=== PATIENT | female | born 1980 | race Caucasian/White ===

== ENCOUNTER 2018-04-06 19:32 | Emergency (ER) | payer OTHER ==
[~2018-04-06] VITALS: Ht 154.9 cm; Wt 59.0 kg
[~2018-04-06 19:32] MED LIST: ABILIFY30 MG PO; AZITHROMYCIN 2250 MG PO; CHERATUSSIN DA480 ML PO; CITRATE OF MAG296 ML PO; DULCOLAX5 MG PO; EXCEDRIN CAPLE1 EACH PO; LITHIUM CARBON300 M3 PO; LOVAZA1000 MG PO; MUCOSA400 MG; NUVARING VAGIN1 EACH CERVICAL; POTASSIUM20 PO; PREDNISONE 10 M10 M1 PO; SEROQUEL 25 MG25 M1 PO; SYMBICORT160 MCG/4. INH; TRILEPTAL600 MG; TRILEPTAL600 MG PO; VALTREX 500 MG500 M1; VICODIN 5-5001 EACH PO; VITAMIN D1000 UNI1 PO; VYVANSE60 MG PO; ZOFRAN ODT4 MG PO; ZOFRAN4 MG PO; ZPAK PO
[2018-04-06] MEDS ORDERED: MUPIROCIN15 GM TOP (20:04)
== END 2018-04-06 21:51 | disposition home or self-care (01) ==
LOC: ER 19:32
DX: S40.812A Abrasion of left upper arm, initial encounter (principal); S40.811A Abrasion of right upper arm, initial encounter; M25.512 Pain in left shoulder; J45.909 Unspecified asthma, uncomplicated; E11.9 Type 2 diabetes mellitus without complications; G51.0 Bell's palsy; Z88.8 Allergy status to other drugs, medicaments and biological substances; W55.01XA Bitten by cat, initial encounter; Y93.89 Activity, other specified; Y92.89 Other specified places as the place of occurrence of the external cause; Y99.8 Other external cause status

== ENCOUNTER 2018-09-20 19:44 | Emergency (ER) | payer OTHER ==
[~2018-09-20] VITALS: Ht 154.9 cm; Wt 61.2 kg
[~2018-09-20 19:44] MED LIST changes: +MUPIROCIN15 GM TOP
[2018-09-20 21:29] LABS: URINE BILIRUBIN NEGATIVE (Negative); URINE BLOOD 2+ (Negative); URINE CLARITY CLEAR; URINE COLOR YELLOW; URINE GLUCOSE-RANDOM* NEGATIVE (Negative); URINE KETONES NEGATIVE (Negative); URINE LEUKOCYTES-REFLEX NEGATIVE (Negative); URINE NITRITE-REFLEX NEGATIVE (Negative); URINE PROTEIN (DIPSTICK) 1+ (Negative); URINE SPECIFIC GRAVITY 1.025 (1.005-1.035); URINE UROBILINOGEN 0.2 E.U./dl (0.2-1.0)
[2018-09-20 21:37] LABS: CASTS None Seen /LPF (None Seen); CRYSTALS None Seen /LPF (None Seen); SQUAMOUS 0-3 Few /LPF (0-3); URINE RBC 0-2 Rare /HPF (0-2); URINE WBC-REFLEX 0-5 Rare /HPF (0-5)
[2018-09-20 22:05] LABS: ABSOLUTE NEUTROPHILS 4.3 thou/uL (1.4-8.2); BASOPHILS 0.9 % (0.0-2.0); EOSINOPHILS 2.6 % (0.0-3.0); HEMATOCRIT 39.9 % (37.0-47.0); HEMOGLOBIN 13.9 gm/dL (12.0-15.0); LYMPHOCYTES 21.3 % (24.0-44.0); MCV 91.6 fL (80.0-100.0); MONOCYTES 8.2 % (1.0-8.0); PLATELET COUNT 227 thou/uL (150-400); RBC 4.35 mil/uL (4.20-5.00); RDW 12.8 % (10.5-14.5); WBC 6.4 thou/uL (4.0-11.0)
[2018-09-20 22:13] LABS: ANION GAP 9 mmol/L (7-16); BUN 16 mg/dL (7-18); CALCIUM 9.3 mg/dL (8.5-10.1); CHLORIDE 106 mmol/L (98-107); CO2 26 mmol/L (21-32); CREATININE 0.6 mg/dL (0.6-1.0); GLUCOSE 100 mg/dL (74-106); POTASSIUM 4.1 mmol/L (3.5-5.1); SODIUM 141 mmol/L (136-145)
[2018-09-20 22:23] LABS: ALBUMIN 3.3 g/dL (3.4-5.0); SGOT 15 U/L (15-37); SGPT 19 U/L (30-65); TOTAL BILIRUBIN 0.6 mg/dL (<0.1-1.0); TOTAL PROTEIN 6.2 g/dL (6.4-8.2); TROPONIN-I <0.06 ng/mL (<0.06)
[2018-09-20] MEDS ORDERED: NAPROSYN500 MG PO (22:38)
[2018-09-20 22:56] VITALS: BP 120/71
--- NOTE | 2018-09-21 08:02 | EKG ---
[address] [address] ELECTROCARDIOGRAM REPORT Name: NORMEUNSOUMYA Fernández Room #: DEP [facility]#: [id number] ������������������ Admission: 09/20/18 ������������������ Attend Phys: Discharge: 09/20/18 ������������������ Date of : 82 Report #: [id number] ����������������������������������������������������������������� [id number] THIS REPORT FOR: //name// [facility] ED Test Date: 2018-09-20 Test Time: 19:50:15 Pat Name: SOUMYA ROYAL Department: Room: Gender: F Emergency Specialist: JANE : 1980 Requested By: John Paul Minaya Order Number: [id number] MD: Mike Mac Measurements Intervals [place] Rate: 81 P: 76 CO: 119 QRS: 61 QRSD: 74 T: 32 QT: 357 QTc: 415 Interpretive Statements Sinus arrhythmia Normal tracing Compared to ECG 11/17/2013 20:10:50 ST (T wave) deviation no longer present Electronically Signed On 09-21-2018 8:02:39 CDT by Mike Mac [email or web address] ��������������������������������������������� <ELECTRONICALLY SIGNED> ���������������������������������������� By: Mike Mac MD, [facility] ��������������������������������������������� 09/21/18801 49 1950 Mike Mac MD, FACC /EPI
== END 2018-09-20 22:57 | disposition home or self-care (01) ==
LOC: ER 19:44
PROVIDERS: Emergency Medicine
DX: R07.89 Other chest pain (principal); N64.4 Mastodynia; F31.9 Bipolar disorder, unspecified; F41.9 Anxiety disorder, unspecified; J45.909 Unspecified asthma, uncomplicated; E11.9 Type 2 diabetes mellitus without complications; B20 Human immunodeficiency virus [HIV] disease; Z88.0 Allergy status to penicillin; Z79.899 Other long term (current) drug therapy